=== PATIENT | male | born 1960 | race Hispanic/Latino ===

== ENCOUNTER 2018-12-07 11:36 | Day surgery (SDC) | payer OTHER ==
[2018-12-07] MEDS ORDERED: DIPRIVAN 10 MG/ML IV ONE ×2 (12:49)
--- NOTE | 2018-12-07 12:51 | Anesthesia Day of Surgery ---
Anesthesia Day of Surgery - Day of Surgery Patient Examined: Yes Patient H&P Reviewed: Yes Patient is NPO: Yes Beta Blockers: No
--- NOTE | 2018-12-07 12:52 | Anesthesia Consultation ---
Anesthesia Consult and Med Hx Date of service: 12/07/18 - Airway Anesthetic Teeth Evaluation: Good ROM Head & Neck: Adequate Mental/Hyoid Distance: Adequate Mallampati Class: Class III Intubation Access Assessment: Probably Good - Pulmonary Exam CTA: Yes - Pre-Operative Health Status ASA Pre-Surgery Classification: ASA3 Proposed Anesthetic Plan: MAC - Cardiovascular System Hx Hypertension: Yes Hx Heart Murmur: Yes - Endocrine Hx Insulin Dependent Diabetes: Yes
[2018-12-07] MEDS ORDERED: WATER FOR IRRIG STERILE ONE (12:54)
[2018-12-07] MEDS ORDERED: WATER FOR IRRIG STERILE IR ONE (12:54)
[2018-12-07] MEDS ORDERED: NACL 0.9% 1000 ML 1,000 ML IV SCH (13:00)
--- NOTE | 2018-12-07 13:34 | Operative Report ---
Operative Report Operative Report: Date of procedure: 12/07/2018 Procedure: Colonoscopy with Snare polypectomy and Submucosal injection. Attending physician: Carlo Guzman M.D. Medical Records Coordinator: Carlo Guzman M.D. Indication: Patient is a 58-year-old male who presents for colonoscopy. He had a recent history of acute diverticulitis and left lower quadrant abdominal pain. He is status post treatment. This colonoscopy serves to evaluate patient so that treatment may be directed based on the findings. Consent: Informed consent was obtained after advising the patient and family regarding nature of this procedure, its indications, potential benefits as well as possible complications including but not limited to bleeding perforation and adverse reaction to medication, infection as well as other cardiopulmonary complications. An informed written and verbal consent was then obtained after due opportunity was provided for questions and answers. Monitoring: Patient was monitored continuously with pulse oximetry and electrocardiographic recordings as well as blood pressure recordings. Vital signs remained stable throughout this procedure with no untoward events. Preoperative assessment: Patient was assessed immediately prior to this procedure for capacity to tolerate monitored anesthesia care and moderate sedation as well as general anesthesia. Patient's ASA classification is 2, Mallampati class is 2, Hyomental distance is 3. Instrument: [email or web address] video colonoscope Medications: Propofol given intravenously in divided doses. For details please refer to anesthesia records. Description of procedure: Patient was placed in the left lateral decubitus position after achieving sedation, a digital rectal examination was performed following which the colonoscope was introduced into the anal verge and advanced to the cecum which was identified by the cecal valve, the appendiceal orifice, as well as by the cecal strap and direct transillumination. The colonoscope was subsequently withdrawn with careful inspection of all mucosal surfaces. Patient tolerated this procedure well and was subsequently taken to the recovery room. The following findings were noted. Findings: Patient had an ascending colon flat polyp measuring approximately 8 mm to 10 mm. This was elevated with submucosal injection of saline and removed by snare electrocautery and retrieved. Patient had diverticulosis involving the ascending colon sigmoid and descending colon of mild severity. Patient was noted to have internal hemorrhoids seen on the retroflexed view at the anal verge. Impression: Ascending colon polyp status post snare polypectomy and submucosal injection Mild diverticulosis. Internal hemorrhoids. Plan: Follow pathology report. High-fiber diet. Repeat colonoscopy in 5 years if polyp is adenomatous.
--- NOTE | 2018-12-07 13:35 | Discharge Summary ---
Short Stay Discharge Plan Activity: advance as tolerated Weight Bearing Status: Weight Bear as Tolerated Diet: regular Additional Instructions: Post Sedation D/C Instructions When you return home you may resume your regular diet unless otherwise directed. - Go directly home from the hospital and rest quietly. You may resume normal activities tomorrow. -Do NOT drive, return to work, operate any machinery or make any important personal or business decisions today. -Do NOT drink any alcohol or take nerve or sleeping drugs. They add to the effects of the medicine still present in your body. Follow up with Dr. Guzman in 1-2 weeks re: pathology results. Follow up with: BRAIN HOYT [Primary Care Provider] - 7 Days
[2018-12-08 18:57] VITALS: BP 116/87
== END 2018-12-07 11:37 | disposition home or self-care (01) ==
LOC: GIO 11:36
PROVIDERS: ATTEND Internal Medicine Gastroenterology
DX: K63.5 Polyp of colon (principal); K57.30 Diverticulosis of large intestine without perforation or abscess without bleeding; K64.8 Other hemorrhoids; E78.00 Pure hypercholesterolemia, unspecified; I10 Essential (primary) hypertension; E11.9 Type 2 diabetes mellitus without complications; Z79.899 Other long term (current) drug therapy; Z88.6 Allergy status to analgesic agent; Z79.4 Long term (current) use of insulin; Z79.84 Long term (current) use of oral hypoglycemic drugs; Z98.890 Other specified postprocedural states
CPT/HCPCS: 45381; 45385; 82962; 88305; J2704; J7030